=== PATIENT | female | born 1955 | race Caucasian/White ===

== ENCOUNTER 2017-06-26 23:14 | Emergency (ER) | payer BC, OTHER ==
[~2017-06-26] VITALS: Ht 165.1 cm; Wt 50.8 kg
--- NOTE | 2017-06-27 00:05 | NUR ---
Patient c/o chestpain that occurred around 10pm, localized middle of the chest, but now gone, reports was taking Clindamycin.
--- NOTE | 2017-06-27 00:45 | NUR ---
Dr. Quiroga at bedside for MSE.
--- NOTE | 2017-06-27 01:17 | NUR ---
Patient discharged to home in stable conditon. Written and verbal after care instructions given. Patient verbalizes understanding of instructions. Patient ambulated out of ER with steady gait, no acute signs of distress, VSS, all belongings taken.
[2017-06-27 01:20] VITALS: BP 111/76
== END 2017-06-27 01:15 | disposition home or self-care (01) ==
LOC: ER 23:15
DX: R07.9 Chest pain, unspecified (principal); E78.00 Pure hypercholesterolemia, unspecified; Z88.2 Allergy status to sulfonamides; Z88.1 Allergy status to other antibiotic agents
CPT/HCPCS: A4663